=== PATIENT | female | born 1945 | race Caucasian/White ===

== ENCOUNTER 2016-10-17 12:45 | Outpatient (RCR) | payer OTHER | END 2016-11-13 | disposition home or self-care (01) | LOC: PTY 12:45 | DX: M79.675 Pain in left toe(s) (principal); E78.00 Pure hypercholesterolemia, unspecified; M54.5 Low back pain; G89.29 Other chronic pain; R41.3 Other amnesia | CPT/HCPCS: 97035; 97110; 97140; 97161; G0283 ==

== ENCOUNTER 2016-11-16 15:10 | Outpatient (RCR) | payer OTHER | END 2016-12-14 | disposition home or self-care (01) | LOC: PTY 15:10 | DX: M54.5 Low back pain (principal); M79.675 Pain in left toe(s); G89.29 Other chronic pain; M51.36 Other intervertebral disc degeneration, lumbar region; E78.00 Pure hypercholesterolemia, unspecified; R41.3 Other amnesia | CPT/HCPCS: 97035; 97110; 97140; G0283 ==

== ENCOUNTER 2016-12-19 13:00 | Outpatient (RCR) | payer OTHER | END 2017-01-13 | disposition home or self-care (01) | LOC: PTY 13:00 | DX: M54.5 Low back pain (principal); M79.675 Pain in left toe(s); G89.29 Other chronic pain; M51.36 Other intervertebral disc degeneration, lumbar region; E78.00 Pure hypercholesterolemia, unspecified; R41.3 Other amnesia | CPT/HCPCS: 97035; 97110; G0283 ==

== ENCOUNTER 2017-01-30 12:56 | Outpatient (RCR) | payer OTHER | END 2017-02-13 | disposition home or self-care (01) | LOC: PTY 12:56 | DX: E78.00 Pure hypercholesterolemia, unspecified (principal); M54.5 Low back pain; M79.675 Pain in left toe(s); G89.29 Other chronic pain; M51.36 Other intervertebral disc degeneration, lumbar region; R41.3 Other amnesia | CPT/HCPCS: 97110; G0283 ==